=== PATIENT | male | born 1990 | race African-American/Black ===

== ENCOUNTER 2016-11-28 16:17 | Emergency (ER) | payer SELFPAY ==
[~2016-11-28] VITALS: Ht 180.3 cm; Wt 95.0 kg
[~2016-11-28 16:17] MED LIST: AMOXICILLIN500 MG PO; BACTRIM DS1 TAB PO; LORTAB 10-325 M1 TAB PO; NAPROSYN500 MG OR; PREVACID30 M2 OR; ULTRAM50 M1 PO
[2016-11-28] MEDS ORDERED: DOXYCYC MONO100 M1 PO (16:36)
[2016-11-28 17:05] VITALS: BP 118/63
== END 2016-11-28 17:05 | disposition home or self-care (01) | DRG 605 ==
LOC: ED 16:17
PROC: 0HQMXZZ Repair Right Foot Skin, External Approach (ICD-10-PCS; principal; 2016-11-28)
DX: S91.114A Laceration without foreign body of right lesser toe(s) without damage to nail, initial encounter (principal); F17.210 Nicotine dependence, cigarettes, uncomplicated; V88.8XXA Person injured in other specified noncollision transport accidents involving motor vehicle, nontraffic, initial encounter; Y93.89 Activity, other specified; Y92.89 Other specified places as the place of occurrence of the external cause